=== PATIENT | female | born 1990 | race American Indian/Alaskan Native ===

== ENCOUNTER 2018-12-22 09:15 | Inpatient (IN) | payer MEDICAID ==
[2018-12-22] MEDS ORDERED: LACTATED RINGERS 2,000 ML ONE (10:18)
[2018-12-22] MEDS ORDERED: SUBLIMAZE ONE (10:27)
[2018-12-22] MEDS ORDERED: NARCAN 0.4 MG/1 ML IV PRN (11:45)
[2018-12-22] MEDS ORDERED: DILAUDID IV PRN ×2 (11:45→17:49)
[2018-12-22] MEDS ORDERED: ZOFRAN IV PRN (11:45)
[2018-12-22] MEDS ORDERED: PITOCin/NS 20 UNIT/1000ML DRIP 20,000 MILLIUNITS/1,000 ML BAG IV ONE (11:55)
[2018-12-22] MEDS ORDERED: REGLAN ONE (11:56)
[2018-12-22] MEDS ORDERED: PEPCID IV ONE ×2 (11:56→12:04)
[2018-12-22] MEDS ORDERED: BICITRA ONE (11:56)
[2018-12-22] MEDS ORDERED: ANCEF/STERILE WATER 2 GM/20 ML 2 GM/20 ML SYRINGE IV ONE (11:57)
[2018-12-22] MEDS ORDERED: SODIUM CHLORIDE FLUSH SYRINGE 10 ML IV NR ×2 (12:00→15:00)
[2018-12-22] MEDS ORDERED: REGLAN IV ONE (12:04)
[2018-12-22] MEDS ORDERED: BICITRA PO ONE (12:04)
[2018-12-22 12:10] LABS: Basophils % (Auto) 0.5 % (0.0-1.8); Eosinophils % (Auto) 0.9 % (0.0-4.3); Hematocrit 31.9 % (30.3-42.9); Hemoglobin 10.4 gm/dl (10.1-14.3); Lymphocytes # (Auto) 1.5 K/mm3 (1.2-5.4); Lymphocytes % (Auto) 38.4 % (13.4-35.0); Mean Corpuscular HGB Conc 33 % (30-34); Mean Corpuscular Volume 80 fl (79-97); Monocytes # (Auto) 0.3 K/mm3 (0.0-0.8); Monocytes % (Auto) 8.9 % (0.0-7.3); Platelet Count 227 K/mm3 (140-440); Red Cell Distribution Width 15.3 % (13.2-15.2)
[2018-12-22] MEDS ORDERED: TORADOL ONE (12:32)
[2018-12-22] MEDS ORDERED: NACL 0.9% IR ONE (13:00)
[2018-12-22] MEDS ORDERED: ANCEF/STERILE WATER 2 GM/20 ML 2 GM/20 ML SYRINGE IV NR (13:00)
[2018-12-22] MEDS ORDERED: PITOCin/NS 20 UNIT/1000ML DRIP 20 UNITS/1,000 ML BAG IV SCH ×2 (13:00→15:00)
[2018-12-22] MEDS ORDERED: WATER FOR IRRIG STERILE IR ONE (13:00)
[2018-12-22] MEDS ORDERED: LACTATED RINGERS 1,000 ML IV SCH (13:00)
--- NOTE | 2018-12-22 13:05 | History and Physical Report ---
History of Present Illness Date of admission: 12/22/18 09:15 History of present illness: 28yo at 39 / weeks BRIAN presents for scheduled section. She reports good movement, no loss of fluid and no vaginal bleeding. Her care has been routine with Hayden Gipson. She was comanaged with [facility] due to her history of previous section. She also desires a female sterilization and has been consented for the risk of ectopic and failure. Past History - Obstetrical History Expected Date of Delivery: 12/27/18 Actual Gestation: 39 Week(s) 2 Day(s) : 4 Number of Living Children: 3 Medications and Allergies Allergies Allergy/AdvReac Type Severity Reaction Status Date / Time No Known Allergies Allergy Verified 07/05/16 08:51 Home Medications Medication Instructions Recorded Confirmed Last Taken Type Ferrous Sulfate [Feosol 325 MG tab] 325 mg PO BID #60 tablet 07/05/16 Unknown Rx HYDROcodone/APAP 5-325 [[place] 1 each PO Q6HR PRN #30 tablet 07/05/16 Unknown Rx 5/325] Ibuprofen [Motrin] 800 mg PO Q8HR PRN #30 tablet 07/05/16 Unknown Rx Vit Calc,Iron,Folic 1 each PO DAILY #30 tablet 07/05/16 Unknown Rx [ Vitamins] Active Meds: Active Medications Hydromorphone HCl (Dilaudid) 0.25 mg IV Q5M PRN PRN Reason: Breakthrough Pain Stop: 12/22/18 23:59 Hydromorphone HCl (Dilaudid) 0.5 mg IV ONCE PRN PRN Reason: breakthrough pain > 7/10 Cefazolin Sodium (Ancef/Sterile Water 2 Gm/20 Ml) 2 gm in 20 mls @ 80 mls/hr IV PREOP NR; Protocol Stop: 12/22/18 23:59 Lactated Ringer's (Lactated Ringers) 1,000 mls @ 2,250 mls/hr IV PREOP RUDDY Stop: 12/23/18 13:27 Oxytocin/Sodium Chloride (Pitocin/Ns 20 Unit/1000ml Drip) 20 units in 1,000 mls @ 0 mls/hr IV TITR RUDDY Naloxone HCl (Narcan 0.4 Mg/1 Ml) 0.2 mg IV Q2MIN PRN PRN Reason: Res Rate </= 8 or 02 SAT < 92% Ondansetron HCl (Zofran) 4 mg IV Q8H PRN PRN Reason: Nausea And Vomiting Sodium Chloride (Sodium Chloride Flush Syringe 10 Ml) 10 ml IV PRN NR Stop: 12/23/18 11:59 - Vital Signs Vital signs: Vital Signs Temp Pulse Resp BP 98.8 F 73 16 124/68 12/22/18 11:37 12/22/18 11:37 12/22/18 11:37 12/22/18 11:37 Temp Pulse Resp BP Pulse Ox 98.8 F 73 16 124/68 12/22/18 11:37 12/22/18 11:37 12/22/18 11:37 12/22/18 11:37 - Obstetrical FHR: category 1 Results Result Diagrams: 12/22/18 Unknown Abnormal lab results 12/22/18 Range/Units Unknown WBC 3.9 L (4.5-11.0) K/mm3 MCH 26 L (28-32) pg RDW 15.3 H (13.2-15.2) % Lymph % (Auto) 38.4 H (13.4-35.0) % [place] % (Auto) 8.9 H (0.0-7.3) % All other labs normal. Assessment and Plan - Patient Problems (1) Previous delivery affecting Onset Date: 07/05/16 Current Visit: No Status: Acute (2) 39 weeks gestation of Current Visit: Yes Status: Acute Plan to address problem: IVF Routine labs, T & Screen SCD Ancef 2g IV Risks, benefits and alternatives discussed informed consent signed for bilateral tubal ligation and section. Proceed to OR. (3) Anemia affecting Current Visit: Yes Status: Acute
[2018-12-22] MEDS ORDERED: NEO SYNEPHRINE/NS Syringe(OR USE) IV ONE (13:23)
[2018-12-22] MEDS ORDERED: MILK OF MAGNESIA PO PRN (14:55)
[2018-12-22] MEDS ORDERED: TUCKS PAD TP PRN (14:55)
[2018-12-22] MEDS ORDERED: TYLENOL PO PRN (14:55)
[2018-12-22] MEDS ORDERED: LANSINOH TP PRN (14:55)
--- NOTE | 2018-12-22 14:58 | Post Anesthesia Evaluation ---
- Post Anesthesia Evaluation Airway Patent: Yes Stable Respiratory Function: Yes Nausea/Vomiting: No Temp > 96.8F: Yes Pain Manageable: Yes Adequeate Hydration: Yes Anesthesia Complications: No Block Receding Appropriately: Yes Patient on Ventilator: No
--- NOTE | 2018-12-22 15:16 | Operative Report ---
Operative Report Operative Report: DATE OF OPERATION 12/22/18 PREOP Diagnosis 1. 39 4/7 weeks gestation 2. Previous section 3. Desires permanent sterilization PREOP Diagnosis 1. 39 4/7 weeks gestation 2. Previous section 3. Desires permanent sterilization Procedure: 1. Repeat low-transverse section 2. Bilateral tubal ligation via modified [place] method 3. Lysis of adhesions Findings 1. Viable male infant in the vertex presentation weighing 6lb 5oz, 2875g APGARS 8 at 1 min, 9 at 5 min 2. Normal bilateral ovaries and tubes 3. Extensive filmy bladder to lower uterine segment adhesions Surgeon 1. Mellissa Toro MD Anesthesia: 1. Epidural I/O: EBL: 600ml UOP: 300ml, clear urine IVF 2100ml LR Specimens removed: 1. Placenta 2. Right and left tubal segments Complications: none Disposition: Patient taken to recovery room in stable condition INDICATIONS: The patient is a 25yo at 39 4/7weeks that presented for scheduled repeat section and permanent sterilization. The patient was consented and the risks including but not limited to bleeding, infections, injury to surrounding organs, potential injury to mother/ were discussed. Risk of tubal ligation including ectopic and failure were discussed. All questions were answered and informed consent signed. PROCEDURE: The patient was taken to the OR in stable condition. Adequate anesthesia was achieved with epidural anesthesia. A dumont catheter was placed. She wore SCDs for DVT prophylaxis. And received Ancef for infection prophylaxis. The patient was prepped and draped in a sterile fashion and an additional time out was done. A Pfannestiel incision was made over the previous uterine scar. The fascia was incised and the incision extended laterally. The superior and inferior aspect of the rectus muscle was dissected off of the fascia. Entry into the peritoneum was achieved. The peritoneum was adhered to the lower uterine segment with filmy adhesions. The bladder was adhered as well. The Metzenbaum scissors was used to dissect the peritoneum off the lower uterine segment. A low-transverse incision was made made in the uterus and extended laterally. membranes were ruptured. The vertex was brought to the hysterotomy. The body was delivered and the infant was bulb suctioned. The cord was clamped x 2, cut and handed off to awaiting computer artist staff. The placenta was delivered intact and 20 units of IV Pitocin were added to LR fluids. The uterus was cleaned of all clots. The uterus was repaired with 0-Vicryl in a running, locked stitch and an imbricating layer of the same suture was used. The lower uterine segment was noted to be thin and several figure of 8's were used to maintain hemostasis of the lower uterine segment at the level of the hysterotomy. Tissell's fibrine sealant was placed over the hysterotomy and lower uterine segment. Attention was then turned to the right fallopian tube which was traced down to the fimbriated end. The tube was grasped with the [place]a scissors at the isthmus 3 cm distal to the cornua. 0-Chromic was used to secure a section of the fallopian tube and the tubal ligation was carried out using the modified [place] methods. The same procedure was carried out on the left tube and both tubes were sent to pathology for evaluation. The rectus was reapproximated with 2-0 Vicryl. Interced was placed anterior to rectus muscle. The fascia was closed with 0 Vicryl and the skin was closed with 4-0 Vicryl. The patient tolerated the procedure well. All counts were correct x 3. Urine was noted to be clear at close of case. I was present and scrubbed for the entire procedure. The patient was taken to the recovery room in stable condition.
[2018-12-22] MEDS: DILAUDID IV PRN (15:44)
[2018-12-22] MEDS ORDERED: TORADOL IM ONE (17:26)
[2018-12-22] MEDS ORDERED: D5LR 1,000 ML IV SCH (20:00)
[2018-12-23] MEDS: DILAUDID IV PRN (00:01)
[2018-12-23] MEDS: PERCOCET 5/325 PO PRN ×4 (02:42→19:53)
[2018-12-23] MEDS: IBUPROFEN PO PRN ×4 (02:43→19:53)
[2018-12-23 04:54] LABS: Hemoglobin 8.5 gm/dl (10.1-14.3)
--- NOTE | 2018-12-23 10:09 | Progress Note ---
Assessment and Plan A: POD#1 Asymptomatic Anemia P: Follow Routine PostOp Orders Infed 100mg IM x 1 dose Ferrous Sulfate 325mg PO BID Advance Diet with +Flatus Encourage increased ambulation Subjective - Subjective Date of service: 12/23/18 Patient reports: appetite normal, voiding normally, pain well controlled, ambulating normally : doing well, bottle feeding Objective - Vital Signs Latest vital signs: Vital Signs Temp Pulse Resp BP BP Pulse Ox 12/23/18 07:43 98.2 F 78 18 115/71 99 12/23/18 04:00 98.6 F 66 16 102/78 12/23/18 02:43 20 12/23/18 02:42 20 12/23/18 00:24 98.6 F 87 18 126/79 100 12/23/18 00:01 20 12/22/18 20:02 18 12/22/18 16:00 98.4 F 75 14 132/75 100 12/22/18 15:55 70 14 136/80 100 12/22/18 15:44 12 12/22/18 15:40 64 13 121/88 100 12/22/18 15:25 63 13 121/80 100 12/22/18 15:10 52 L 12 133/84 100 12/22/18 15:05 55 L 12 136/78 100 12/22/18 15:00 97.6 F 58 L 12 130/78 100 12/22/18 11:37 98.8 F 73 16 124/68 Intake and Output 12/22/18 12/23/18 12/23/18 22:59 06:59 14:59 Output Total 350 1400 200 Balance -350 -1400 -200 Output: Urine 350 1400 200 Indwelling Catheter 800 200 Void 600 Other: Total, Output Amount 600 200 # Voids Indwelling Catheter 1 Void 1 - Exam Breasts: Present: normal Cardiovascular: Present: Regular rate Lungs: Present: Clear to auscultation, Normal air movement Abdomen: Present: normal appearance, soft, normal bowel sounds Uterus: Present: normal, firm, fundal height below umbilicus Extremities: Present: normal Incision: Present: normal, dry, dressed - Labs Labs: Abnormal lab results 12/22/18 12/23/18 Range/Units Unknown 03:49 WBC 3.9 L (4.5-11.0) K/mm3 Hgb 8.5 L (10.1-14.3) gm/dl Hct 26.0 L (30.3-42.9) % MCH 26 L (28-32) pg RDW 15.3 H (13.2-15.2) % Lymph % (Auto) 38.4 H (13.4-35.0) % [place] % (Auto) 8.9 H (0.0-7.3) %
[2018-12-23] MEDS ORDERED: INFED IM ONE (12:00)
[2018-12-23] MEDS: FEOSOL PO SCH ×2 (13:37→21:52)
[2018-12-23] MEDS: MYLICON PO PRN (13:37)
[2018-12-24] MEDS: PERCOCET 5/325 PO PRN ×2 (02:15→11:11)
[2018-12-24] MEDS: IBUPROFEN PO PRN ×2 (02:16→11:11)
[2018-12-24] MEDS: MYLICON PO PRN (09:37)
--- NOTE | 2018-12-24 10:21 | Progress Note ---
Assessment and Plan A: POD#2 Stable Asymptomatic Anemia P: Follow Routine PostOp Orders Ferrous Sulfate 325mg PO BID Advance Diet with +Flatus Encourage increased ambulation Discharge home today Subjective - Subjective Date of service: 12/24/18 Principal diagnosis: POD#2 s/p Repeat c/s with BTL Patient reports: appetite normal, voiding normally, pain well controlled, flatus, ambulating normally, no bowel movement [place]: doing well, bottle feeding Objective - Vital Signs Latest vital signs: Vital Signs Temp Pulse Resp BP BP Pulse Ox 12/24/18 07:49 98.8 F 82 18 117/71 98 12/24/18 02:16 20 12/24/18 02:15 20 12/24/18 00:25 98.3 F 79 18 120/67 96 12/23/18 19:53 20 12/23/18 17:20 97.6 F 87 18 123/72 100 Intake and Output 12/23/18 12/24/18 12/24/18 23:59 07:59 15:59 Intake Total 340 240 Output Total 900 Balance -560 240 Intake: Oral 240 Intake, Free Water 100 240 Output: Urine 900 Void 900 Other: Total, Intake Amount 240 Total, Output Amount 900 # Voids Void 3 2 Weight 58.967 kg Patient Weight 12/24/18 23:59 Weight 58.967 kg - Exam Breasts: Present: normal Cardiovascular: Present: Regular rate, Normal S1, Normal S2, No murmurs Lungs: Present: Clear to auscultation, Normal air movement Abdomen: Present: normal appearance, soft, tenderness (as expected Post-op), normal bowel sounds. Absent: distention Vulva: both: normal Uterus: Present: firm, fundal height below umbilicus (-1) Extremities: Present: normal Deep Tendon Reflex Grade: Normal +2 Incision: Present: normal (LTI, closed with SQ sutures and steri strips. CDI. No drainage. ), dry, intact
--- NOTE | 2018-12-24 10:24 | Discharge Summary ---
Providers - Providers Date of Admission: 12/22/18 09:15 Date of discharge: 12/24/18 Attending physician: MARIELOS MARLOW Primary care physician: MARIELOS MARLOW Hospitalization Delivery: Procedure: bilateral tubal ligation, repeat low transverse Procedure details: See H&P and operative note Incision: normal (LTI, closed with SQ sutures and steri strips), dry, intact Other procedures: tubal ligation complications: none Discharge diagnosis: IUP at term delivered baby: male Condition at discharge: Good Disposition: DC-01 TO HOME OR SELFCARE Plan - Discharge Medications Prescriptions: Ferrous Sulfate [Feosol 325 MG tab] 325 mg PO BID 30 Days #60 tablet Ibuprofen 800 mg PO Q6H PRN 10 Days #30 tablet MDD 3200mg PRN Reason: Pain, Moderate (4-6) oxyCODONE /ACETAMINOPHEN [Percocet 5/325] 1 tab PO Q4HR PRN 14 Days #30 tab PRN Reason: Pain , Severe (7-10) - Provider Discharge Summary Activity: routine, no sex for 6 weeks, no heavy lifting 4 weeks, no strenuous exercise Diet: routine Instructions: routine Additional instructions: [] Smoking cessation referral if applicable(refer to patient education folder for contact #) [] Refer to [facility]'s [facility] Booklet Call your doctor immediately for: * Fever > 100.5 * Heavy vaginal bleeding ( >1 pad per hour) * Severe persistent headache * Shortness of breath * Reddened, hot, painful area to leg or breast * Drainage or odor from incision. * Keep incision clean and dry at all times and follow doctor's instructions regarding bathing/showering - Follow up plan Follow up: MARIELOS MARLOW MD [Primary Care Provider] - 7 Days Forms: C Discharge Summary, DC Identification Form, Discharge Signature Page
[2018-12-24] MEDS: FEOSOL PO SCH (11:10)
[2018-12-24 19:17] VITALS: BP 126/85
== END 2018-12-24 14:10 | disposition home or self-care (01) | DRG 765 ==
LOC: APU 09:15 → OB 16:43
PROVIDERS: ADMIT Obstetrics & Gynecology; ATTEND Obstetrics & Gynecology
PROC: 10D00Z1 Extraction of Products of Conception, Low, Open Approach (ICD-10-PCS; principal; 2018-12-22)
PROC: 0UB70ZZ Excision of Bilateral Fallopian Tubes, Open Approach (ICD-10-PCS; 2018-12-22)
DX: O34.211 Maternal care for low transverse scar from previous cesarean delivery (principal); D62 Acute posthemorrhagic anemia; O99.02 Anemia complicating childbirth; D64.9 Anemia, unspecified; Z3A.39 39 weeks gestation of pregnancy; Z37.0 Single live birth
CPT/HCPCS: 36415; 85014; 85018; 85025; 86850; 86900; 86901; 88302; G0378; C1765; C9250; J0690; J1170; J1750; J1885; J2370; J2590; J2765; J3010; J7120; J7121

== ENCOUNTER 2020-12-13 21:01 | Emergency (ER) | payer MEDICAID ==
[2020-12-13 21:24] VITALS: BP 124/75
== END 2020-12-13 23:00 | disposition left against medical advice (07) ==
LOC: ED 21:01
DX: R51.9 Headache, unspecified (principal); Z53.21 Procedure and treatment not carried out due to patient leaving prior to being seen by health care provider